=== PATIENT | female | born 1940 | race Caucasian/White ===

== ENCOUNTER 2016-10-18 18:19 | Emergency (ER) | payer OTHER ==
[2016-10-18 18:29] VITALS: BP 158/84; PULSE 81; TEMP 97.9; BMI 28.1
--- NOTE | 2016-10-18 19:00 | PDOC ---
History of Present Illness - General Chief Complaint: Pain Stated Complaint: HIP PAIN Time Seen by Provider: 10/18/16 18:35 History Source: Patient Exam Limitations: No Limitations - History of Present Illness Initial Comments: 10/18/16 19:03 76-year-old female presents to the emergency with complaints of left hip and left thigh pain she says that she's had for the past month which she attributes to her right knee discomfort causing her to use her left leg for the majority of the weightbearing. Patient denies any skin discoloration, swelling, calf tenderness, history of DVT, recent travel, recent surgery, recent illness. Patient states has taken Tylenol for discomfort with moderate effect but only providing temporary relief. Timing/Duration: intermittent Severity: moderate Associated Symptoms: denies: weakness Past History - Past Medical History Allergies/Adverse Reactions: Allergies Allergy/AdvReac Type Severity Reaction Status Date / Time Penicillins Allergy Mild Verified 10/18/16 18:29 Home Medications: Ambulatory Orders Oxycodone HCl/Acetaminophen [Percocet 5-325 mg Tablet] 1 tab PO BID PRN #12 tab MDD 4 10/18/16 Walker [Ultra-Light Rollator] 1 each MC PRN #1 each 10/18/16 Asthma: Yes Cardiac Disorders: Yes CVA: Yes GI Disorders: Yes (uterine prolapse) Other medical history: vertigo, arthritis, osteoporosis - Psycho/Social/Smoking Cessation Hx Anxiety: No Suicidal Ideation: No Smoking History: Never smoked Have you smoked in the past 12 months: No Information on smoking cessation initiated: No Hx Alcohol Use: No Drug/Substance Use Hx: No Substance Use Type: None Patient Lives Alone: No Lives with/in: daughter Review of Systems - Review of Systems Able to Perform ROS?: Yes Constitutional: No: Symptoms Reported Musculoskeletal: Yes: Joint Pain (left knee left hip), Muscle Pain (left thigh) . No: Joint Swelling Integumentary: No: Symptoms Reported Neurological: No: Symptoms reported Endocrine: No: Symptoms Reported Hematologic/Lymphatic: No: Symptoms Reported *Physical Exam - Vital Signs Last Vital Signs Temp Pulse Resp BP Pulse Ox 97.9 F 81 18 158/84 10 L 10/18/16 18:21 10/18/16 18:21 10/18/16 18:21 10/18/16 18:21 10/18/16 18:21 - Physical Exam General Appearance: Yes: Nourished, Appropriately Dressed. No: Apparent Distress Respiratory/Chest: positive: Lungs Clear, Normal Breath Sounds, Other ( respiration rate 18). negative: Respiratory Distress, Accessory Muscle Use Vascular Pulses: Dorsalis-Pedis (R): 2+, Doralis-Pedis (L): 2+ Gastrointestinal/Abdominal: positive: Normal Bowel Sounds, Soft. negative: Tenderness Extremity: positive: Normal Capillary Refill, Normal Inspection, Normal Range of Motion ( noted discomfort with front leg raise). negative: Tender Integumentary: positive: Normal Color, Warm, Moist Neurologic: positive: Motor Strength 5/5 (ambulatory with limp) Medical Decision Making - Medical Decision Making 10/18/16 19:06 Patient with complaints of continual left hip and left knee pain which she attributes to poor ambulation and right knee pain that has been going on for proximal me 5 months. Patient has not seen an orthopedist but was ordered for physical therapy which she did not start as of yet. Patient ambulatory the cane with moderate effect but states would prefer a walker. 10/18/16 19:07 Patient ordered for Percocet here in the ER and will be discharged home with the same and a prescription for walker *DC/Admit/Observation/Transfer Diagnosis at time of Disposition: Left knee pain Qualifiers: Chronicity: acute Qualified Code(s): M25.562 - Pain in left knee - Discharge Dispostion Disposition: HOME Condition at time of disposition: Good - Prescriptions Prescriptions: Oxycodone HCl/Acetaminophen [Percocet 5-325 mg Tablet] 1 tab PO BID PRN #12 tab MDD 4 PRN Reason: Pain Walker [Ultra-Light Rollator] 1 each MC PRN #1 each - Referrals Referrals: Aaliyah Brooks [Primary Care Provider] - Mark Robledo MD [Staff Physician] - - Patient Instructions Printed Discharge Instructions: DI for Leg Pain Additional Instructions: Please take Percocet one tablet with 650 mg of Tylenol as needed twice a day for discomfort. If you become constipated with the medication please stop the Percocet as that is a common side effect. Please use walker as needed to alleviate discomfort and follow-up with referred orthopedist.
[2016-10-18] MEDS ORDERED: ACETAMINOPHEN 325 MG TABLET (FP) PO ONE (19:08)
[2016-10-18] MEDS ORDERED: OXYCODONE/APAP 5/325MG COMBO TABLET PO ONE (19:08)
[2016-10-18] MEDS ORDERED: OXYCODONE/APAP 5/325MG COMBO TABLET ONE (19:22)
[2016-10-18] MEDS ORDERED: ACETAMINOPHEN 650 MG/20.3 ML ORAL SOLUTION (CUPS) ONE (19:23)
== END 2016-10-18 19:28 | disposition home or self-care (01) ==
LOC: JERFT 18:19
DX: M25.552 Pain in left hip (principal); M25.562 Pain in left knee; J45.909 Unspecified asthma, uncomplicated; M12.9 Arthropathy, unspecified; Z86.73 Personal history of transient ischemic attack (TIA), and cerebral infarction without residual deficits
CPT/HCPCS: 99281-25

== ENCOUNTER 2020-11-17 12:29 | Emergency (ER) | payer OTHER ==
[2020-11-17 13:20] VITALS: TEMP 98.1; BMI 28.1
[2020-11-17] MEDS ORDERED: HURRICAINE SP EXT TUBE 1 EA EACH TP ONE (14:16)
[2020-11-17] MEDS ORDERED: TETRACAINE/BENZOCAINE/BUTAMBEN 20 GM SPR TP ONE (14:43)
[2020-11-17 14:47] LABS: BASO % 0.5 % (0-2.0); EOS % 2.5 % (0-4.5); HEMATOCRIT 40.6 % (32.4-45.2); HEMOGLOBIN 13.6 GM/dL (10.7-15.3); LYMPH % 29.8 % (8-40); MCH 29.5 pg (25.7-33.7); MCHC 33.4 g/dl (32.0-36.0); MEAN CELL VOLUME 88.3 fl (80-96); MONO % 7.8 % (3.8-10.2); NEUT % 59.4 % (42.8-82.8); PLATELET COUNT 290 K/MM3 (134-434); RDW 13.4 % (11.6-15.6); WHITE BLOOD COUNT 7.5 K/mm3 (4.0-10.0)
[2020-11-17 14:57] LABS: EPI CELLS >36 /uL (0-25.1); HYALINE CASTS 4 /uL (0-3.1); PH,URINE 5.5 (5.0-8.0); URINE APPEARANCE CLOUDY; URINE BACTERIA 3063 /uL (0-1359); URINE BILIRUBIN NEGATIVE (NEGATIVE); URINE COLOR YELLOW; URINE GLUCOSE (UA) NEGATIVE (NEGATIVE); URINE KETONE NEGATIVE (NEGATIVE); URINE LEUK ESTERASE 3+ (NEGATIVE); URINE NITRITE NEGATIVE (NEGATIVE); URINE PROTEIN NEGATIVE (NEGATIVE); URINE RBC 13 /uL (0-23.9); URINE UROBILINOGEN 0.2 mg/dL (0.2-1.0); URINE WBC 558 /uL (0-25.8)
[2020-11-17 15:08] LABS: CALCIUM 10.4 mg/dL (8.5-10.1)
[2020-11-17 15:09] LABS: ALBUMIN 3.6 g/dl (3.4-5.0); BLOOD UREA NITROGEN 21.4 mg/dL (7-18)
[2020-11-17 15:12] LABS: CREATININE 0.9 mg/dL (0.55-1.3)
[2020-11-17 15:13] LABS: BILIRUBIN,TOTAL 0.5 mg/dL (0.2-1); TOT PROT 8.5 g/dl (6.4-8.2)
[2020-11-17] MEDS ORDERED: MAG HYDROX/AL HYDROX/SIMETH 30 ML UNIT-DOSE CUP PO ONE (16:50)
[2020-11-17] MEDS ORDERED: FAMOTIDINE 20 MG/50 ML IVPB 20 MG/50 ML MG IVPB ONE ×2 (16:50→16:54)
[2020-11-17] MEDS ORDERED: MAG HYDROX/AL HYDROX/SIMETH 30 ML UNIT-DOSE CUP ONE (16:54)
[2020-11-17] MEDS ORDERED: CLINDAMYCIN HCL 150 MG CAPSULE (FP) PO ONE (16:55)
[2020-11-17] MEDS ORDERED: CLINDAMYCIN HCL 150 MG CAPSULE (FP) ONE (17:00)
[2020-11-17] MEDS ORDERED: ACETAMINOPHEN 325 MG TABLET (FP) PO ONE ×2 (17:14)
[2020-11-17] MEDS ORDERED: ACETAMINOPHEN 325 MG TABLET (FP) ONE (17:19)
[2020-11-17 17:48] VITALS: BP 132/80; PULSE 71
== END 2020-11-17 17:30 | disposition home or self-care (01) ==
LOC: JER 12:29
PROC: 3E033NZ Introduction of Analgesics, Hypnotics, Sedatives into Peripheral Vein, Percutaneous Approach (ICD-10-PCS; principal; 2020-11-17)
DX: K04.7 Periapical abscess without sinus (principal); N28.1 Cyst of kidney, acquired; K57.90 Diverticulosis of intestine, part unspecified, without perforation or abscess without bleeding
CPT/HCPCS: 36415; 70360-TC-FY; 70487-TC; 74177-TC; 80053; 81003; 83690; 85025; 87086; 99285-25; C9803; Q9967; U0003; U0005

== ENCOUNTER 2022-02-28 00:38 | Emergency (ER) | payer OTHER ==
[2022-02-28] MEDS ORDERED: ACETAMINOPHEN 1000 MG/100 ML BAG IVPB ONE (01:17)
[2022-02-28 01:23] VITALS: BP 155/83; PULSE 90; TEMP 97.2; BMI 28.1
[2022-02-28] MEDS ORDERED: ACETAMINOPHEN INJECTION 100 ML IVPB ONE (02:05)
[2022-02-28 03:34] LABS: BASO % 0.3 % (0-2.0); EOS % 0.9 % (0-4.5); HEMATOCRIT 40.1 % (32.4-45.2); HEMOGLOBIN 13.1 GM/dL (10.7-15.3); LYMPH % 20.6 % (8-40); MCHC 32.7 g/dl (32.0-36.0); MEAN CELL VOLUME 88.7 fl (80-96); MEAN PLT VOLUME 8.6 fl (7.5-11.1); MONO % 6.8 % (3.8-10.2); NEUT % 71.4 % (42.8-82.8); PLATELET COUNT 167 10^3/uL (134-434); RBC 4.53 M/mm3 (3.60-5.2); WHITE BLOOD COUNT 5.9 K/mm3 (4.0-10.0)
[2022-02-28 03:54] LABS: ALBUMIN 3.8 g/dl (3.4-5.0); CALCIUM 9.1 mg/dL (8.5-10.1)
[2022-02-28 03:55] LABS: BLOOD UREA NITROGEN 25.9 mg/dL (7-18)
[2022-02-28 03:58] LABS: CREATININE 0.8 mg/dL (0.55-1.3)
[2022-02-28 03:59] LABS: BILIRUBIN,TOTAL 0.4 mg/dL (0.2-1); TOT PROT 7.2 g/dl (6.4-8.2)
== END 2022-02-28 07:09 | disposition left against medical advice (07) ==
LOC: JER 00:38 → UNDOADMOB 05:02 → JERBED 05:02 → JER 07:09
PROC: 3E033GC Introduction of Other Therapeutic Substance into Peripheral Vein, Percutaneous Approach (ICD-10-PCS; principal; 2022-02-28)
DX: S52.532A Colles' fracture of left radius, initial encounter for closed fracture (principal); W01.0XXA Fall on same level from slipping, tripping and stumbling without subsequent striking against object, initial encounter
CPT/HCPCS: 70450-TC; 72125-TC; 72128-TC; 72131-TC; 72192-TC; 73030-TC-LT-FY; 73070-TC-LT-FY; 73090-TC-LT-FY; 73110-TC-LT-FY; 73130-TC-LT-FY; 80053; 85025; 86850; 86900; 86901; 99285-25